=== PATIENT | male | born 1985 | race Caucasian/White ===

== ENCOUNTER 2022-09-11 16:22 | Emergency (ER) | payer SELFPAY ==
[~2022-09-11] VITALS: Ht 185.4 cm; Wt 121.6 kg
--- NOTE | 2022-09-11 16:25 | NUR ---
VITO ALS TO ER BED 10
--- NOTE | 2022-09-11 16:30 | NUR ---
ST on cm, o2 sat 98% ra, sr up times 2, chest pain 5/10, md aware
[2022-09-11] MEDS ORDERED: LORazepam 2 MG/ML VIAL IVP ONE ×3 (16:35→19:20)
[2022-09-11] MEDS ORDERED: NACL 0.9% 1,000 ML IV ONE ×2 (16:35→19:20)
[2022-09-11 17:09] LABS: BASOPHILS # (AUTO) 0.1 K/uL (0.00-0.22); BASOPHILS % (AUTO) 0.4 % (0.0-2.0); EOSINOPHILS % (AUTO) 0.2 % (0.0-4.0); HEMATOCRIT 47.2 % (36-52); HEMOGLOBIN 15.7 g/dL (12.0-18.0); LYMPHOCYTES # (AUTO) 1.9 K/uL (2.0-11.5); LYMPHOCYTES % (AUTO) 11.3 % (20.5-51.1); MEAN CORPUSCULAR HEMOGLOBIN 29 pg (27-31); MEAN CORPUSCULAR HGB CONC 33 g/dL (33-37); MEAN CORPUSCULAR VOLUME 87.5 fL (80-94); MONOCYTES # (AUTO) 1.7 K/uL (0.8-1.0); MONOCYTES % (AUTO) 10.1 % (1.7-9.3); NEUTROPHILS # (AUTO) 13.1 K/uL (1.8-7.7); PLATELET COUNT (AUTO) 346 K/uL (140-450); RED BLOOD CELL COUNT(AUTO) 5.39 MIL/uL (4.20-6.10); RED CELL DISTRIBUTION WIDTH 13.7 % (11.6-13.7); WHITE BLOOD COUNT (AUTO) 16.8 K/uL (4.8-10.8)
[2022-09-11 17:27] LABS: BARBITURATE, URINE NEGATIVE ng/ml (NEG <=200); BENZODIAZEPINE, URINE NEGATIVE ng/mL (NEG <=200); CANNABINOID, URINE NEGATIVE ng/mL (NEG <=50); COCAINE, URINE NEGATIVE ng/mL (NEG <=300); OPIATE, URINE NEGATIVE ng/mL (NEG <=2000); PHENCYCLIDINE SCREEN,URINE NEGATIVE ng/mL (NEG <=25)
--- NOTE | 2022-09-11 17:31 | NUR ---
pt medicated w ativan as ordered, now sleeping, no ac distress, st on cm o2 sat 98% ra, sr up times 2
[2022-09-11 17:46] LABS: ALBUMIN 3.9 g/dL (3.4-5.0); ANION GAP 14.3 (8-16); CARBON DIOXIDE 29.2 mmol/L (21-32); POTASSIUM 3.5 mmol/L (3.5-5.1); TOTAL BILIRUBIN 0.8 mg/dL (0.0-1.0)
[2022-09-11 18:03] LABS: FREE T4 (FREE THYROXINE) 1.48 ng/dL (0.76-1.46); THYROID STIMULATING HORMONE 1.49 uIU/mL (0.34-3.74)
--- NOTE | 2022-09-11 19:03 | NUR ---
pt pulled iv from lac, new iv to left wrist, pt suggested not to remove it removed monitor leads and pulse ox as well
--- NOTE | 2022-09-11 19:10 | NUR ---
report to Re clerk supervisor nurse
--- NOTE | 2022-09-11 19:20 | NUR ---
ASSUMED CARE OF PT AT THIS TIME. PT BEHIND THE CURTAIN "PLAYING WITH HIMSELF", NAKED, WILL NOT KEEP STILL. PT IS UNDER THE INFLUENCE OF METHAMPHETAMINE. HR 126. UPDATED PT ON POC, PT UNABLE TO REMAIN FOCUSED. PT ATTEMPTS TO GRAB MY BREAST AND I BECAME VERY FIRM IN HOW NURSE PT RELATIONSHIP WILL BE PT WILL MOST LIKELY BE ADMITTED AND HOLDING IN ER. PT HAS VISITED THE ER FOR SAME SEVERAL TIMES. PT VERBALIZES UNDERSTANDING. PT PLACED BACK ON C-MONITOR AT THIS TIME. WILL CONTINUE TO MONITOR.
--- NOTE | 2022-09-11 20:13 | NUR ---
PT AMBULATES TO RESTROOM WITH A STEADY GAIT.
[2022-09-11] MEDS ORDERED: cefTRIAXone 1,000 MG VIAL ONE (20:36)
--- NOTE | 2022-09-11 21:05 | NUR ---
PT WILL NOT KEEP CLOTHES ON, CONTINUES TO WALK AROUND THE ER. DR. ACHARYA AWARE AND WILL DISCHARGE PT. PT STATES HE IS ABLE TO CALL HIS GRANDMOTHER AND STAY WITH HER. AWAITING DC ORDERS.
[2022-09-11] MEDS ORDERED: CEPH-588 PO (21:08)
[2022-09-11] MEDS ORDERED: AZIT250T4 PO (21:08)
[2022-09-11 21:13] VITALS: BP 118/67
--- NOTE | 2022-09-11 21:13 | NUR ---
Patient discharged with v/s stable. Written and verbal after care instructions given and explained. Patient alert, oriented and verbalized understanding of instructions. Ambulatory with steady gait. All questions addressed prior to discharge. ID band removed. Patient advised to follow up with PMD. Rx of KEFLEX, ZITHROMAX given. Patient educated on indication of medication including possible reaction and side effects. Opportunity to ask questions provided and answered.
== END 2022-09-11 21:13 | disposition home or self-care (01) ==
LOC: MED 16:22
DX: J18.9 Pneumonia, unspecified organism (principal); F15.10 Other stimulant abuse, uncomplicated
CPT/HCPCS: 36415; 71045; 80053; 80305; 83605; 83880; 84439; 84443; 84484; 85025; 85379; 87040; 96361; 96365; 96375; 96376; 99285; J0696; J2060; J7030; Q0092